=== PATIENT | female | born 1970 | race Caucasian/White ===

== ENCOUNTER → 2016-10-30 | Outpatient (CLI) | payer MEDICAID ==
--- NOTE | 2016-10-30 08:58 | USB ---
EXAMINATION TYPE: US breast limited LT DATE OF EXAM: 10/30/2016 COMPARISON: Mammogram dated 10/30/2016. Asymptomatic female. CLINICAL HISTORY: R92.8 abnormal mammogram. The 1.3 cm focal asymmetry in the upper outer quadrant of the right breast seen on the mammogram of corresponds sonographically to a hypoechoic, avascular 1.3 x 0.9 x 0.6 cm mass. This contains fat on both 3-D mammographic views and sonographically. Therefore this is probably benign and warran t 6 month follow-up diagnostic mammogram and ultrasound as possibilities could include a fat lobule w ithin dense tissue, fat necrosis, or less likely hamartoma. Additionally corresponding to the mammographic mass in the retroareolar region, 3 cm from the nipple there is a bilobed 0.6 x 0.3 x 0.5 cm hypoechoic nearly anechoic mass with a well-defined posterior w all. This likely represents adjacent cysts and is probably benign warranting six-month follow-up diag nostic mammogram and ultrasound. Incidentally noted at the 1:00 position, 5 cm from the nipple there is an avascular 0.5 x 0.3 x 0.7 c m area of hypoechogenicity with interspersed hyperechogenicity. This likely represents a focal area o f dense tissue and can be reassessed on the above recommended 6 month follow-up ultrasound. IMPRESSION: Probably benign right breast findings for which six-month follow-up diagnostic mammogram and ultrasound are recommended.
--- NOTE | 2016-11-03 09:21 | MM ---
Reason for exam: screening (asymptomatic). Baseline mammogram. History: Patient is postmenopausal. Took hormonal contraceptives for 1 year beginning at age 23. Took progesterone for 1 year beginning at age 27. Physical Findings: Nurse did not find any significant physical abnormalities on exam. MG 3D Screening Mammo W/Cad Bilateral CC, MLO, and XCCL view(s) were taken. There are scattered fibroglandular densities. There is a 6mm mass central, slightly lateral left breast at anterior depth for which an ultrasound is recommended and also a 16mm focal asymmetry left upper outer quadrant 14cm from nipple. These results were verbally communicated with the patient and result sheet given to the patient on 10/30/16. ASSESSMENT: Incomplete: need additional imaging evaluation, BI-RAD 0 RECOMMENDATION: Special view mammogram and ultrasound of the left breast. (11-1 o'clock, 3cm from the nipple) [facility] will attempt to contact patient to return for supplemental views and ultrasound.
--- NOTE | 2016-11-03 09:22 | MM ---
Reason for exam: additional evaluation requested from abnormal screening. History: Patient is postmenopausal. Took hormonal contraceptives for 1 year beginning at age 23. Took progesterone for 1 year beginning at age 27. Physical Findings: Breast exam preformed at baseline screening. MG Work Up Mamm w CAD RT LM and spot compression MLO view(s) were taken of the right breast. There are scattered fibroglandular densities. See screening exam. These results were verbally communicated with the patient and result sheet given to the patient on 10/30/16. ASSESSMENT: Incomplete: need additional imaging evaluation, BI-RAD 0 RECOMMENDATION: Ultrasound.
== END | disposition home or self-care (01) ==
LOC: RADMAMWWP 07:05
PROVIDERS: ATTEND Family Medicine
DX: Z12.31 Encounter for screening mammogram for malignant neoplasm of breast (principal); R92.8 Other abnormal and inconclusive findings on diagnostic imaging of breast; R92.2 Inconclusive mammogram
CPT/HCPCS: 77063; 76642; G0202; G0206

== ENCOUNTER → 2016-11-21 | Outpatient (CLI) | payer MEDICAID | END | disposition home or self-care (01) | LOC: LABWHC1 07:45 | PROVIDERS: ATTEND Internal Medicine Interventional Cardiology | DX: E03.9 Hypothyroidism, unspecified (principal) | CPT/HCPCS: 36415; 84443 ==

== ENCOUNTER → 2017-02-12 | Outpatient (CLI) | payer MEDICAID ==
[2017-02-12 07:47] LABS: CH 32.5; CHCM 33.4; HGB 15.2 gm/dL (11.4-16.0); MCH 31.5 pg (25.0-35.0); MCHC 32.3 g/dL (31.0-37.0); MCV 97.7 fL (80.0-100.0); Mean Platelet Volume 7.6; RBC 4.81 m/uL (3.80-5.40); RDW 12.7 % (11.5-15.5); WBC 6.6 k/uL (3.8-10.6)
[2017-02-12 08:08] LABS: Anion Gap 10 mmol/L; Blood Urea Nitrogen 15 mg/dL (7-17); Carbon Dioxide 26 mmol/L (22-30); Chloride 105 mmol/L (98-107); Non-African American GFR(MDRD) 59 (>60 ml/min/1.73 sqM); Potassium 4.9 mmol/L (3.5-5.1); Sodium 141 mmol/L (137-145)
== END | disposition home or self-care (01) ==
LOC: LABPAT 06:50
PROVIDERS: ATTEND Internal Medicine Interventional Cardiology
DX: Z01.812 Encounter for preprocedural laboratory examination (principal); I50.23 Acute on chronic systolic (congestive) heart failure
CPT/HCPCS: 36415; 80051; 82565; 84520; 85027

== ENCOUNTER 2017-02-17 10:50 | Day surgery (SDC) | payer MEDICAID ==
[2017-02-12 10:49] VITALS: BMI 49.1
[~2017-02-17 10:50] MED LIST: ALPRAZolam 0.25 MG TAB PO PRN; ALPRAZolam 0.5 MG TAB PO PRN; ASPIRIN 325 MG TAB PO STA; ATORVASTATIN 80 MG TAB PO STA; NITROGLYCERIN SL TABS 0.4 MG TAB SUBLINGUAL PRN; SODIUM CHLORIDE 0.9% 1,000 ML in EMPTY BAG 1 BAG IV ONE
[2017-02-17] MEDS ORDERED: diphenhydrAMINE 50 MG/ML 1 ML VIAL IVP ONE (11:16)
[2017-02-17 11:43] VITALS: PULSE 86; TEMP 98.7
[2017-02-17] MEDS: MIDAZOLAM 2 MG/2 ML VIAL IV ONE ×2 (13:14→13:25)
[2017-02-17] MEDS ORDERED: MIDAZOLAM 2 MG/2 ML VIAL ONE (13:17)
[2017-02-17] MEDS ORDERED: LIDOCAINE 2% INJ 20 MG/ML SQ ONE (13:19)
[2017-02-17] MEDS ORDERED: diphenhydrAMINE 50 MG/ML 1 ML VIAL ONE (13:19)
[2017-02-17] MEDS ORDERED: HEPARIN SODIUM 1,000 UN/ML (10ML VL) ONE (13:20)
[2017-02-17] MEDS: VERAPAMIL SYRINGE (5 MG/10 ML) INTRAARTER ONE ×2 (13:20→13:31)
[2017-02-17] MEDS ORDERED: HYDROmorphone 2 MG/ML 1 ML SYRINGE ONE (13:22)
[2017-02-17] MEDS: HYDROmorphone 2 MG/ML 1 ML SYRINGE IV ONE ×2 (13:23→13:25)
[2017-02-17] MEDS ORDERED: VERAPAMIL 2.5 MG/ML 2 ML AMP ONE (13:35)
[2017-02-17] MEDS ORDERED: IOHEXOL 350 MG/ML 125ML BOTTLE INJ ONE (13:36)
[2017-02-17] MEDS ORDERED: VERAPAMIL SYRINGE (5 MG/10 ML) INTRAARTER ONE (13:36)
[2017-02-17] MEDS ORDERED: IV FLUID CONTINUATION 950 ML IV ONE (13:37)
[2017-02-17] MEDS ORDERED: RX INFO: IV CONTRAST WAS GIVEN 1 EACH MISC MISCELLANE PRN (13:42)
[2017-02-17] MEDS ORDERED: SODIUM CHLORIDE 0.9% 1,000 ML IV SCH (13:45)
--- NOTE | 2017-02-17 14:07 | CC ---
CARDIAC CATHETERIZATION REPORT DATE OF SERVICE: February 17, 2017 PERFORMING PHYSICIAN: Manny Tomlinson MD, cullet washer. PROCEDURE PERFORMED: 1. Selective right and left coronary angiogram. 2. Left heart catheterization. INDICATION: This is a pleasant 46-year-old female patient who was experiencing chest discomfort concerning for angina. She underwent a myocardial perfusion imaging stress test and that was technically very difficult. She was brought today to undergo a heart catheterization. APPROACH: Right radial artery. COMPLICATION: None. LEVEL OF SEDATION: Moderate with sedation length of 18 minutes. PROCEDURE DESCRIPTION: After obtaining informed consent, the patient was brought to the cardiac lab asst. The right radial artery was cannulated using micropuncture technique. The right radial artery was cannulated using micropuncture technique and a micropuncture wire passed easily then I placed a 6-[place] sheath in the right radial artery. Subsequently I did selective right and left coronary angiogram using JR4 and JL3 catheters. After that, we did left heart catheterization using the 5-[place] JR4 which flipped into the LV. Then it was pulled through the aortic valve. The procedure was completed without any complication. SELECTIVE CORONARY ANGIOGRAM: 1. The right coronary artery is a large caliber vessel and it is a dominant vessel. It is angiographically normal. It bifurcates distally into PDA and PLV branches, both are angiographically normal. 2. The left main is angiographically normal it bifurcates into the left circumflex and left anterior descending artery. 3. The left circumflex is a large caliber vessel. It is a nondominant vessel. The proximal circ is angiographically normal and gives rise into a large OM branch which bifurcates into 2 subbranches. The first OM is angiographically normal. The mid left circumflex is normal and the circumflex distally is normal. 4. The left anterior descending artery: The proximal LAD is angiographically normal and gives rise into the first diagonal branch which seems to be angiographically normal. The mid LAD is normal as well and gives rise into a second diagonal, which seems to be angiographically normal. The LAD does not reach the apex. HEMODYNAMICS: The left ventricular end-diastolic pressure was 2 to 4 mmHg and no gradient was identified across the aortic valve. CONCLUSION: 1. Normal coronary angiogram. 2. Low left ventricular end-diastolic pressure. POSTPROCEDURE MANAGEMENT: 1. Maximize medical treatment. 2. Follow up with the patient. MMODL / IJN: [id number] /
--- NOTE | 2017-02-17 14:28 | LTR ---
DATE OF SERVICE: 02/17/2017 RE: Yvette Kapadia Dear Dr. Ray; Ms. Yvette Kapadia underwent a heart catheterization today and that revealed normal coronaries. Thank you for allowing us to participate in her care and please do not hesitate to call if you have any questions or concerns. Sincerely, MD MERLE Olson / JAIR: [id number] /
[2017-02-17 17:49] VITALS: RESP 18
[2017-02-17 18:37] VITALS: BP 130/87
== END 2017-02-17 18:45 | disposition home or self-care (01) ==
LOC: CATHCVL 10:50
PROVIDERS: ATTEND Internal Medicine Interventional Cardiology
DX: I20.0 Unstable angina (principal); R60.0 Localized edema; I10 Essential (primary) hypertension; Z79.899 Other long term (current) drug therapy; Z91.040 Latex allergy status
CPT/HCPCS: 93458

== ENCOUNTER → 2017-06-22 | Outpatient (CLI) | payer MEDICAID ==
--- NOTE | 2017-06-22 17:31 | XR ---
EXAMINATION TYPE: XR chest 2V DATE OF EXAM: 06/22/2017 COMPARISON: NONE HISTORY: Cough and congestion TECHNIQUE: Frontal and lateral views of the chest are obtained. FINDINGS: There is no heart failure nor confluent pneumonic infiltrate. Costophrenic angles are cole r. The thoracic aorta is atheromatous. Bony thorax is intact. IMPRESSION: No active cardiopulmonary disease. Normal heart.
== END | disposition home or self-care (01) ==
LOC: RADXRMAIN 16:58
PROVIDERS: ATTEND Family Medicine
DX: J42 Unspecified chronic bronchitis (principal)
CPT/HCPCS: 71046